=== PATIENT | male | born 1960 ===

== ENCOUNTER 2020-09-23 15:54 | Outpatient (CLI) | payer OTHER | END 2020-09-23 20:01 | disposition home or self-care (01) | LOC: INF 15:54 | PROVIDERS: ATTEND Internal Medicine | DX: Z23 Encounter for immunization (principal) | CPT/HCPCS: 96372 ==

== ENCOUNTER 2020-10-13 15:37 | Outpatient (CLI) | payer OTHER | END 2020-10-13 21:37 | disposition home or self-care (01) | LOC: INF | PROVIDERS: ATTEND Internal Medicine | DX: Z23 Encounter for immunization (principal) | CPT/HCPCS: 96372 ==